=== PATIENT | female | born 1980 | race Two or more races ===

== ENCOUNTER 2023-10-31 00:12 | Emergency (ER) | payer MEDICAID, SELFPAY ==
[2023-10-31] VITALS (7 sets, daily range): BP systolic 147–178; BP diastolic 91–109; PULSE 68–84; RESP 16–20; TEMP 36.2–36.8; O2SAT 97–100; BMI 31.9
--- NOTE | 2023-10-31 00:57 | PC.NURSE ---
Pt presents for reports of high blood pressure at 2 different doctors appointments. Pt BP at this time 164/109 and HR 75. Pt reports a SLATER 12/08, no hx of elevated BP. Pt also reports she has an IUD that is turned upside down and it will be getting removed and this is causing her alot of stress and anxiety. She is not sure if that is related but also has High BP in her family.
--- NOTE | 2023-10-31 01:15 | ECG_ITS ---
Test Reason : cp Blood Pressure : / mmHG Vent. Rate : 070 BPM Atrial Rate : 070 BPM P-R Int : 142 ms QRS Dur : 078 ms QT Int : 402 ms P-R-T Axes : 004 000 002 degrees QTc Int : 434 ms Normal sinus rhythm Minimal voltage criteria for LVH, may be normal variant ( R in aVL ) Nonspecific T wave abnormality Abnormal ECG No previous ECGs available Referred By: Ny Salter Electronically Signed By:SUSAN DOS SANTOS
--- NOTE | 2023-10-31 01:25 | ED_ITS ---
HPI - General Adult General Chief complaint: Headache Stated complaint: high blood pressure/head hurts Time Seen by Provider: 10/31/23 00:52 History of Present Illness HPI narrative: Patient is a 43-year-old female presented today with having elevated blood pressure. Patient went to her OBGYN was noted to have elevated blood pressure. Presented to the ED. There has no fever no chills no chest pain. Took her blood pressure again it was elevated it was 150 over something. Decided to come to the ED. Patient not on any medications. Does not think she is . No leg swelling. No chest pain. No diaphoresis. No history of diabetes. Has a history of IUD. But she has not having any belly pain not having any complications. Related Data Previous Rx's ?Medication ?Instructions ?Recorded amlodipine 5 mg tablet 5 mg PO DAILY #14 tabs 10/31/23 Allergies Allergy/AdvReac Type Severity Reaction Status Date / Time No Known Allergies Allergy Verified 10/31/23 00:26 Review of Systems 2 Review of Systems: No fever no chills no chest pain no shortness a breath no nausea no vomiting Yes all other systems are reviewed and are negative [facility] Past Medical History Attestation statement: The following information was validated with the patient. Social History Social History Alcohol intake: never Smoked in Last 30 Days: No Use of substances other than those prescribed or required for medical reasons: No Advance Directives: No Advance Directives Information Provided: Yes Do you have a plan to hurt others: No Plan Patient : No Physical Exam ED Vital Signs: Vital Signs - 24 hr 10/31/23 00:22 10/31/23 00:46 10/31/23 01:50 Temperature 97.5 F 97.2 F Pulse Rate 74 75 Respiratory Rate 20 17 Blood Pressure 178/100 H 164/109 H 166/96 H Pulse Oximetry 100 100 Oxygen Delivery Method Room Air Room Air 10/31/23 01:51 10/31/23 02:49 10/31/23 03:05 Temperature 98.2 F 98.1 F Pulse Rate 77 78 84 Respiratory Rate 16 16 17 Blood Pressure 166/96 H 161/99 H 147/91 H Pulse Oximetry 100 99 100 Oxygen Delivery Method Room Air Room Air BMI result Body Mass Index 31.9 Appearance: Alert. Oriented X3. No acute distress. Eyes: Pupils equal, round and reactive to light. ENT: Pharynx normal. Neck: Normal inspection. Neck supple. No lymph nodes noted. No crepitus CVS: Normal heart rate and rhythm. Pulses normal. Normal S1 and S2 Respiratory: No respiratory distress. Breath sounds normal. No Wheezing. No rales Abdomen: Soft and nontender. No rigidity. No distention. good BS x4 Skin: Skin warm and dry. Normal skin color. Normal skin turgor. Extremities: No lower extremity edema. Neurovascular intact to all extremities. No Lacerations. No Rash Neuro: Oriented X 3. No motor deficit. No sensory deficit. Moving all extermities. No slurred speech Medications Administered Discontinued Medications Generic Name Dose Route Start Last Admin Trade Name Freq PRN Reason Stop Dose Admin Amlodipine Besylate 5 mg 10/31/23 01:15 10/31/23 01:50 Amlodipine Besylate 5 Mg Tablet PO 10/31/23 01:16 5 mg ONCE ONE Administration Protocol Medical Decision Making Medical Decision Making [facility] Narrative: Patient's blood pressure is 160/99. Electrolytes are normal. Kidney function is normal. Hemoglobin is normal. My interpretation of patient's EKG showed a sinus rhythm heart rate is 70 VA QRS QTC normal there T-wave inversion over the inferior leads patient in no distress. Monitor in the ED started on amlodipine 5 mg will write a prescription for the same have patient follow-up in 2 days for blood pressure recheck with primary care doctor Patient's blood pressure now 147/91. Will discharge patient home. In stable condition. Differential Diagnosis Differential Diagnoses: The differential diagnosis associated with the presentation includes Hypertension, hypertensive urgency hypertensive emergency Admission/Observation Consideration of admission/observation: Escalation of care including admission/observation considered Lab Data [facility] Lab Attestation statement: I reviewed the patient's lab results. 10/31/23 02:00 10/31/23 02:00 Labs: Lab Results 10/31/23 Range/Units 02:00 WBC 12.0 H (4.8-10.8) X10*3/uL RBC 5.10 (4.20-5.50) X10*6/uL Hgb 14.4 (12.0-16.0) g/dl Hct 41.5 (37.0-47.0) % MCV 81.4 (80.0-98.0) fL MCH 28.2 (27.0-33.0) pg MCHC 34.7 (31.0-35.0) g/dl RDW 13.3 (11.0-16.0) % Plt Count 254 (160-400) X10*3/uL MPV 10.7 (9.4-12.3) fL Immature Gran % (Auto) 0.3 (0.0-0.4) % Neut % (Auto) 63.0 (45-73) % Lymph % (Auto) 25.6 (20-40) % [place] % (Auto) 6.8 (2-11) % Eos % (Auto) 3.7 (0-4) % Baso % (Auto) 0.6 (0-2) % Lymph # (Auto) 3.1 (1.2-4.9) X10*3/uL [place] # (Auto) 0.8 (0.1-1.2) X10*3/uL Eos # (Auto) 0.4 (0.0-0.4) X10*3/uL Baso # (Auto) 0.1 (0.0-0.2) X10*3/uL Abs Immat Gran (auto) 0.03 (0.00-0.03) X10*3/uL Absolute Neuts (auto) 7.6 (2.0-8.3) x10*3/uL Absolute Nucleated RBC 0.000 (0.0-0.012) X10*3/uL Nucleated RBC % (auto) 0.0 (0.0-0.2) /100WBC Sodium 140 (135-145) mmol/L Potassium 4.1 (3.3-5.1) mmol/L Chloride 108 (96-108) mmol/L Carbon Dioxide 24 (22-29) mmol/L Anion Gap 12 (12-20) BUN 10 (9-16) mg/dL Creatinine 0.78 (0.5-1.4) mg/dL Estim Creat Clear Calc 96.0 Estimated GFR > 60 Random Glucose 106 (60-115) mg/dL Calcium 9.4 (8.4-10.2) mg/dL Independent Interpretation I performed an independent interpretation of an: EKG (Sinus heart rate is 70 VA QRS QTC normal no acute ST segment elevation T-wave inversion in the inferior leads) Prescription Management I considered prescription management with: Pain Medication No pain no pain control needed Discharge Plan Discharge Clinical Impression: Hypertension Patient Disposition: Home, Self-Care Instructions: Hypertension (ED) Prescriptions: New amlodipine 5 mg tablet 5 mg PO DAILY Qty: 14 0RF Referrals: [facility] [Primary Care Provider] - 11/02/23 Print Language: [place] Citizen
--- OUTSIDE RECORDS SUMMARY | 2023-10-31 01:38 | XMS_ITS | Patient Health Record ---
Author Organization [facility] Address [address] [place] [phone] Care Team Providers Care Die Equipment Operator Name Role Phone ELENITA ARENAS Unavailable [phone] Allergies No Known Allergies Results Component Value Reference Range Notes APTIMA COMBO 2 CT/NG, Urine Reviewed date:10/21/2023 01:57:41 PM Interpretation:Negative Performing Lab:[facility], [address] [facility], [place], [address] Jersey Oneal DO Notes/Report: GONORRHEA, AMPLIFIED NEGATIVE NEGATIVE CHLAMYDIA, AMPLIFIED NEGATIVE NEGATIVE DNA Test Results SEX: F : 1980 AGE: 43 [id number] CLINIC ID: [id number] SS: PHYSICIAN: ELENITA ARENAS MOBILE HOMES REPAIRER COLLECTED BY: [id number] Specimen Source: Urine Specimen Type: Urine, Marquez PCR Medium Neisseria gonorrhoeae: NEGATIVE Normal Value: Negative Chlamydia trachomatis: NEGATIVE Normal Value: Negative Reason For Referral No Information Social History Sex Assigned At : Social History Observation Description Sex Assigned At Female Vital Signs Blood pressure diastolic 84 mm Hg 10/28/2023 Height 5'3 in 10/28/2023 Blood pressure systolic 150 mm Hg 10/28/2023 Weight 187 lbs 10/28/2023 BMI 33.12 kg/m2 10/28/2023 Encounters Encounter Location Date Provider Diagnosis [address] [id number] 10/14/2023 ELENITA ARENAS Encounter for screen ing for infections with a predominantly sexual mode of transmission Z11.3 and IUD Check/Follow-up Z30.[address] [id number] 10/28/2023 ELENITA ARENAS Encounter for gynecological examination (general) (routine) without abnormal findings Z01.419 ; Encounter for screening for human papillomavirus (HPV) Z11.51 and Routine Pap Screening Z12.[address] [id number] 10/23/2023 ELENITA ARENAS Assessments Encounter Date Diagnosis (ICD Code) Assessment Notes Treat ment Notes Treatment Clinical Notes 10/14/2023 Encounter for screening for infections with a predominantly sexual mode of transmission (ICD-10 - Z11.3) 10/14/2023 IUD Check/Follow-up (ICD-10 - Z30.431) Client is referred to [facility] for pelvic US to check for IUD and also since she has some pelvic pain. 10/28/2023 Encounter for gynecological examination (general) (routine) without abnormal findings (ICD-10 - Z01.419) 10/28/2023 Encounter for screening for human papillomavirus (HPV) (ICD-10 - Z11.51) 10/28/2023 Routine Pap Screenin g (ICD-10 - Z12.4) 10/14/2023 Other 10/28/2023 Other She is referred to [facility] for [facility]UD removal. Mammogram referral done. Encouraged to seek care for BP, list of PCP providers given Plan Of Treatment Pending Test Test Name Order Date THINPREP PAP TEST, Cervix 10/28/2023 HPV HIGH RISK, Cervix 10/28/2023 Insurance Providers Payer Name Payer Address Payer Phone Subscriber Number Group Number Insured Name Patient Relationship to Insured Coverage Start Date Coverage End Date [place] ATT [place] [address] [place] [address] [id number] Yunior Jones Self - patient is the insured Medical (General) History Medical History History ICD Code asthma chronic sinus infection Hospitalization History Reason Date(Month/Year) childbirth
[2023-10-31] MEDS: amLODIPine Besylate 5 MG TABLET PO (01:50)
[2023-10-31 02:04] LABS: MANUAL DIFF FLAG NO
[2023-10-31 02:07] LABS: Basophils Absolute Auto 0.1 X10*3/uL (0.0-0.2); Basophils Percent Auto 0.6 % (0-2); Eosinophils Absolute Auto 0.4 X10*3/uL (0.0-0.4); Eosinophils Percent Auto 3.7 % (0-4); Hematocrit 41.5 % (37.0-47.0); Hemoglobin 14.4 g/dl (12.0-16.0); Imm Gran Abs Auto 0.03 X10*3/uL (0.00-0.03); Imm Gran Pct Auto 0.3 % (0.0-0.4); Lymphocytes Absolute Auto 3.1 X10*3/uL (1.2-4.9); Lymphocytes Percent Auto 25.6 % (20-40); Mean Corpuscular HGB Conc 34.7 g/dl (31.0-35.0); Mean Corpuscular Hemoglobin 28.2 pg (27.0-33.0); Mean Corpuscular Volume 81.4 fL (80.0-98.0); Mean Platelet Volume 10.7 fL (9.4-12.3); Monocytes Absolute Auto 0.8 X10*3/uL (0.1-1.2); Monocytes Percent Auto 6.8 % (2-11); Neutrophils Absolute Auto 7.6 x10*3/uL (2.0-8.3); Platelet Count 254 X10*3/uL (160-400); Red Cell Distribution Width 13.3 % (11.0-16.0)
[2023-10-31 02:21] LABS: Anion Gap 12 (12-20); Blood Urea Nitrogen 10 mg/dL (9-16); Calcium 9.4 mg/dL (8.4-10.2); Carbon Dioxide 24 mmol/L (22-29); Chloride 108 mmol/L (96-108); Estimated Glomerular Filt Rate > 60; Glucose Random 106 mg/dL (60-115); Potassium 4.1 mmol/L (3.3-5.1); Sodium 140 mmol/L (135-145)
--- NOTE | 2023-10-31 02:50 | PC.NURSE ---
MD aware of BP, recheck in 20 minutes.
== END 2023-10-31 03:35 | disposition home or self-care (01) ==
PROVIDERS: Emergency Provider Emergency Medicine Emergency Medical Services
DX: I10 Essential (primary) hypertension (principal)
CPT/HCPCS: 36415; 80048; 85025; 93005; 99283; 99285

== ENCOUNTER → 2023-10-31 01:15 | Outpatient (BNV) | payer MEDICAID, SELFPAY | PROVIDERS: Emergency Provider Emergency Medicine Emergency Medical Services; Visit Provider Internal Medicine | DX: R94.31 Abnormal electrocardiogram [ECG] [EKG] (principal) | CPT/HCPCS: 93010 ==

== ENCOUNTER 2023-11-04 10:07 | Outpatient (REF) | payer MEDICAID, SELFPAY | END 2023-11-04 10:08 | disposition home or self-care (01) | LOC: HO.HHCL 10:07 | PROVIDERS: Visit Provider Nurse Practitioner | DX: Z53.8 Procedure and treatment not carried out for other reasons (principal) | CPT/HCPCS: 36415 ==

== ENCOUNTER 2023-12-21 11:40 | Outpatient (REF) | payer MEDICAID, SELFPAY ==
[2023-12-21 13:37] LABS: Estimated Average Glucose 103 mg/dL; Hemoglobin A1c % 5.2 % (<6.0)
[2023-12-21 13:46] LABS: Alanine Aminotransferase 17 U/L (0-31); Albumin Level 4.3 g/dL (3.5-5.0); Alkaline Phosphatase 63 U/L (39-117); Anion Gap 12 (12-20); Aspartate Amino Transferase 15 U/L (5-31); Bilirubin Total 0.9 mg/dL (0.0-1.0); Blood Urea Nitrogen 12 mg/dL (9-16); Calcium 9.5 mg/dL (8.4-10.2); Carbon Dioxide 25 mmol/L (22-29); Chloride 104 mmol/L (96-108); Cholesterol 163 mg/dL (<200); Estimated Glomerular Filt Rate > 60; Glucose Random 93 mg/dL (60-115); HDL Cholesterol 50 mg/dL (>40); LDL Cholesterol Calculated 94 mg/dL (<100); Potassium 3.3 mmol/L (3.3-5.1); Sodium 138 mmol/L (135-145); Total Protein 7.6 g/dL (6.5-8.0); Triglycerides 97 mg/dL (<150)
== END 2023-12-21 11:41 | disposition home or self-care (01) ==
LOC: HO.HHCL 11:40
PROVIDERS: Referring Provider Nurse Practitioner; Visit Provider Nurse Practitioner Family
DX: I10 Essential (primary) hypertension (principal)
CPT/HCPCS: 36415; 80053; 80061; 83036

== ENCOUNTER 2024-01-18 18:25 | Emergency (ER) | payer MEDICAID, SELFPAY ==
--- NOTE | 2024-01-18 19:19 | ED_ITS ---
HPI - Extremity Injury (Lower) General Chief Complaint: Back Pain/Injury Stated Complaint: RT hip pain Time Seen by Provider: 01/18/24 19:22 Source: patient Mode of arrival: ambulatory Limitations: no limitations History of Present Illness ED Provider: Rupa Layne PA-C HPI Narrative: 43 yo Vietnamese speaking female presents to the ER for evaluation of lower back pain that started today after she bent down to pick up man her 5 yo child. She reports a pulling and spasming sensation across her entire lower back when it happened and it is worse on the right side. It is worse with movement and trying to stand up. She took tylenol with no relief. No urinary symptoms, weakness or numbness in the leg. Hx prior back pain after she had an epidural for . MD complaint: other (back injury) Onset (ago): hour(s) Place: home Severity: moderate Severity scale (1-10): 6 Relieving factors: nothing Exacerbating factors: nothing Associated symptoms: ambulatory Other symptoms: none Related Data Previous Rx's ?Medication ?Instructions ?Recorded amlodipine 5 mg tablet 5 mg PO DAILY #14 tabs 10/31/23 cyclobenzaprine 10 mg tablet 10 mg PO TID PRN muscle spasm #14 01/18/24 tabs ibuprofen 600 mg tablet 600 mg PO Q8H PRN pain #14 tabs 01/18/24 lidocaine 5 % topical patch 1 patch topical DAILY #15 ea 01/18/24 Allergies Allergy/AdvReac Type Severity Reaction Status Date / Time No Known Allergies Allergy Verified 01/18/24 19:24 Review of Systems Review of Systems: Yes all other systems are reviewed and are negative [facility] Social History Social History Alcohol intake: never Advance Directives: No Advance Directives Information Provided: Yes Physical Exam Vital Signs: Vital Signs: Last Vital Signs Temp 98.3 F 01/18/24 19:22 Pulse 86 01/18/24 19:22 Resp 18 01/18/24 19:22 BP 138/57 L 01/18/24 19:22 Pulse Ox 98 01/18/24 19:22 O2 Del Method Room Air 01/18/24 19:22 BMI result Body Mass Index 34.4 Appearance: Alert. Oriented X3. No acute distress. HEENT: normal inspection CVS: Normal heart rate and rhythm. Pulses normal. Respiratory: No respiratory distress. Skin: Skin warm and dry. Normal skin color. Normal skin turgor. No rashes. Back: normal inspection, no ecchymosis. diffuse soft tissue tenderness across her middle lumbar area with palpable spasm. no midline tenderness of the lumbar spine or thoracic spine. Extremities: normal inspection x4, no joint swelling Neuro: Oriented X 3. No motor deficit. No sensory deficit. slow but steady gait Course Course Course Narrative: This is a Rapid Medical Examination (RME) performed by Rupa Layne PA-C in triage. Full HPI, ROS, assessment and treatment plan per primary provider in the Main ED. 43 yo male presents to the ER for evaluation of right hip pain Plan: Medical Decision Making Medical Decision Making MDM Narrative: 43 yo Vietnamese speaking female presenting with LBP after lifting up 5yo child today. No red flag symptoms of low back pain. ambulating slowly in triage. no need for imaging today. no falls or trauma exam and clinical presentation are c/w muscle strain and spasm. will d/c home with flexeril, motrin, lidoderm Differential Diagnosis Differential Diagnoses: The differential diagnosis associated with the presentation includes Inflammatory disorders, malignancy, trauma, osteoporosis, nerve root compression, radiculopathy, plexopathy, degenerative disc disease, disc herniation, spinal stenosis, sacroiliac joint dysfunction, facet joint injury, and less likely infection?like abscess or diskitis External Record Review External record reviewed: Prior outpatient labs Tests considered The following testing was considered but not selected: UA and lumbar xray considered Prescription Management I considered prescription management with: Pain Medication Critical Care Time Critical Care Time Critical Care Time: No Discharge Plan Discharge Clinical Impression: Strain of lumbar region Qualifiers: Encounter type: initial encounter Qualified Code(s): S39.012A - Strain of muscle, fascia and tendon of lower back, initial encounter Patient Disposition: Home, Self-Care Instructions: Low Back Strain (ED), Lower Back Exercises (ED) Additional Instructions: Your pain is most likely due to muscle strain and spasm. No bending, lifting or twisting. Use ice several times per day for 20 minutes at a time for the next 48 hours and then change to heat. Take medications as prescribed to help with pain and discomfort. Follow up with your Primary Care Doctor this week. If your pain worsens, if you develop new numbness, tingling, weakness, loss of function or incontinence call 911 or come back to the ER right away for evaluation. Prescriptions: New cyclobenzaprine 10 mg tablet 10 mg PO TID PRN (Reason: muscle spasm) Qty: 14 0RF ibuprofen 600 mg tablet 600 mg PO Q8H PRN (Reason: pain) Qty: 14 0RF lidocaine 5 % adhesive patch,medicated 1 patch topical DAILY Qty: 15 0RF Rx Instructions: leave on most painful area for up to 12 hrs No Action amlodipine 5 mg tablet 5 mg PO DAILY Qty: 14 0RF Print Language: Vietnamese
[2024-01-18 19:22] VITALS: BP 138/57; PULSE 86; RESP 18; TEMP 36.8; O2SAT 98; BMI 34.4
[2024-01-18 19:57] VITALS: BP 138/57; PULSE 86; RESP 18; TEMP 36.8; O2SAT 98
== END 2024-01-18 19:58 | disposition home or self-care (01) ==
PROVIDERS: Emergency Provider Internal Medicine; PCP Nurse Practitioner Family
DX: S39.012A Strain of muscle, fascia and tendon of lower back, initial encounter (principal); X50.9XXA Other and unspecified overexertion or strenuous movements or postures, initial encounter; Y93.89 Activity, other specified; Y92.9 Unspecified place or not applicable; Y99.9 Unspecified external cause status
CPT/HCPCS: 99282; 99283

== ENCOUNTER 2024-06-24 18:11 | Emergency (ER) | payer MEDICAID, SELFPAY ==
--- NOTE | ~2024-06-24 | CT_ITS ---
CLINICAL HISTORY: bilateral flank pain, hematuria CT abdomen and pelvis without contrast Comparison: None Findings: Small hiatal hernia is present. The gallbladder and solid organs are within normal limits. No renal stones. No bowel obstruction, pneumoperitoneum, or pneumatosis. An IUD in the uterus is oriented horizontally within the fundal endometrium. IUD oriented horizontally within the fundal endometrium, possibly malpositioned. Please correlate clinically. The bones are intact. IMPRESSION: Otherwise unremarkable CT abdomen and pelvis as above. This document has been electronically signed by: Everett Wheeler MD, PHD on 06/25/2024 03:00:09
--- NOTE | 2024-06-24 19:13 | ED_ITS ---
HPI - General Adult General Chief complaint: Abdominal Pain Stated complaint: abd pain Time Seen by Provider: 06/25/24 01:09 Source: patient Mode of arrival: ambulatory Limitations: no limitations History of Present Illness ED Provider: Dr. Arlene Loyd HPI narrative: Patient comes to the emergency room complaining of intermittent suprapubic and sling pain for last 15 hours. Patient states that for the last 2 hours she has not had any abdominal pain or flank pain. Patient denies hematuria or dysuria. Patient is nausea vomiting or diarrhea. Related Data Previous Rx's ?Medication ?Instructions ?Recorded amlodipine 5 mg tablet 5 mg PO DAILY #14 tabs 10/31/23 cyclobenzaprine 10 mg tablet 10 mg PO TID PRN muscle spasm #14 01/18/24 tabs ibuprofen 600 mg tablet 600 mg PO Q8H PRN pain #14 tabs 01/18/24 lidocaine 5 % topical patch 1 patch topical DAILY #15 ea 01/18/24 cefuroxime axetil 250 mg tablet 250 mg PO BID #14 tabs 06/25/24 Allergies Allergy/AdvReac Type Severity Reaction Status Date / Time No Known Allergies Allergy Verified 06/24/24 19:19 Review of Systems 2 Review of Systems: Constitutional : No Weight loss, No Fever, No Chills, No Night Sweats, No Fatigue, No Malaise ENT/Mouth : No Hearing loss, No Ear Pain, No Nasal Congestion, No Sinus Pain, No Hoarseness, No sore throat, No Rhinorrhea, No Swallowing Difficulty Eyes: No Eye Pain, No Swelling, No Redness, No Foreign Body, No Discharge, No Vision Changes Cardiovascular : No Chest Pain, No SOB, No Dyspnea on Exertion, No Orthopnea, No Edema, No Palpitations Respiratory : No Cough, No Sputum, No Wheezing, No Smoke Exposure, No Dyspnea Gastrointestinal : No Nausea, No Vomiting, No Diarrhea, No Constipation, complaining of suprapubic abdominal pain, bilateral flank pain Genitourinary : no irregular bleeding, No Dysuria, No Urinary Frequency, No Hematuria, No Urinary Incontinence, No Urgency, complaining of mild bilateral Flank Pain, No Urinary Flow Changes, No Hesitancy Musculoskeletal : No joint pain, No Myalgias, No Joint Swelling Skin : No Skin Lesions, No rash Neuro : No Weakness, No Numbness, No Paresthesias, No Loss of Consciousness, No Dizziness, No Headache Psych : No Anxiety/Panic, No Depression, No SI/HI/AH/VH, No Social Issues, Heme/Lymph: No Bruising, No Bleeding,No Lymphadenopathy Endocrine : No Polyuria, No Polydipsia, No Temperature Intolerance [facility] Social History Social History Alcohol intake: never Smoked in Last 30 Days: No Use of substances other than those prescribed or required for medical reasons: No Advance Directives: No Advance Directives Information Provided: Yes Do you have a plan to hurt others: No Plan Physical Exam ED Vital Signs: Vital Signs - 24 hr 06/24/24 19:16 06/25/24 00:27 Temperature 97 F 98.4 F Pulse Rate 84 87 Respiratory Rate 16 18 Blood Pressure 118/80 113/80 Pulse Oximetry 97 96 Oxygen Delivery Method Room Air Room Air BMI result Body Mass Index 0.3 Const Other: Appearance: Alert. Oriented X3. No acute distress. Eyes: Pupils equal, round and reactive to light. ENT: Pharynx normal. Neck: Normal inspection. Neck supple. No lymph nodes noted. No crepitus CVS: Normal heart rate and rhythm. Pulses normal. Normal S1 and S2 Respiratory: No respiratory distress. Breath sounds normal. No Wheezing. No rales Abdomen: Soft , mild tenderness to palpation in suprapubic area, no significant CVA tenderness,. No rigidity. No distention. Skin: Skin warm and dry. Normal skin color. Normal skin turgor. Extremities: No lower extremity edema. No Lacerations. No Rash Neuro: Oriented X 3. No motor deficit. No sensory deficit. Moving all extremities. No slurred speech. CN 2 through 12 grossly intact Psych: calm, cooperative, normal affect Course Course Course Narrative: This is a rapid medical exam performed by Divina Austin NP: Additional HPI, ROS, PE not included below will be deferred to primary provider. Patient is a 43-year-old female presenting with complaint of generalized abdominal pain since this morning. Denies nausea, vomiting, diarrhea. Rates pain at 6-7/10. Denies urinary symptoms. Plan: labs, UA Medical Decision Making Medical Decision Making [facility] Narrative: My interpretation of labs: Normal hematology and chemistry, normal LFTs and lipase. Urinalysis positive for blood in the urine and bacteria. Patient denies dysuria. It is possible patient may be passing a kidney stone CT scan of the abdomen/pelvis show any acute abnormality, IUD in place Patient was given the 1st dose of cefuroxime in the ED Differential Diagnosis Differential Diagnoses: The differential diagnosis associated with the presentation includes (Ureterolithiasis, pyelonephritis, UTI) Admission/Observation Consideration of admission/observation: Escalation of care including admission/observation considered (Given patient's symptoms, observation was considered) Lab Data MDM Lab Attestation statement: I reviewed the patient's lab results. 06/24/24 19:42 06/24/24 19:42 Labs: Lab Results 06/24/24 06/25/24 Range/Units 19:42 19:42 WBC 11.1 H (4.8-10.8) X10*3/uL RBC 5.34 (4.20-5.50) X10*6/uL Hgb 14.4 (12.0-16.0) g/dl Hct 43.0 (37.0-47.0) % MCV 80.5 (80.0-98.0) fL MCH 27.0 (27.0-33.0) pg MCHC 33.5 (31.0-35.0) g/dl RDW 13.2 (11.0-16.0) % Plt Count 277 (160-400) X10*3/uL MPV 10.7 (9.4-12.3) fL Immature Gran % (Auto) 0.5 H (0.0-0.4) % Neut % (Auto) 78.8 H (45-73) % Lymph % (Auto) 15.3 L (20-40) % Citrus % (Auto) 3.6 (2-11) % Eos % (Auto) 1.3 (0-4) % Baso % (Auto) 0.5 (0-2) % Lymph # (Auto) 1.7 (1.2-4.9) X10*3/uL Citrus # (Auto) 0.4 (0.1-1.2) X10*3/uL Eos # (Auto) 0.1 (0.0-0.4) X10*3/uL Baso # (Auto) 0.1 (0.0-0.2) X10*3/uL Abs Immat Gran (auto) 0.05 H (0.00-0.03) X10*3/uL Absolute Neuts (auto) 8.8 H (2.0-8.3) x10*3/uL Absolute Nucleated RBC 0.000 (0.0-0.012) X10*3/uL Nucleated RBC % (auto) 0.0 (0.0-0.2) /100WBC PT 11.9 (10.9-12.4) SEC INR 1.0 (0.9-1.1) Sodium 140 (135-145) mmol/L Potassium 4.7 D (3.3-5.1) mmol/L Chloride 109 H (96-108) mmol/L Carbon Dioxide 24 (22-29) mmol/L Anion Gap 12 (12-20) BUN 9 (9-16) mg/dL Creatinine 0.69 (0.5-1.4) mg/dL Estim Creat Clear Calc 150.7 Estimated GFR > 60 Random Glucose 97 (60-115) mg/dL Calcium 8.7 D (8.4-10.2) mg/dL Total Bilirubin 0.7 (0.0-1.0) mg/dL AST 15 (5-31) U/L ALT 13 (0-31) U/L Alkaline Phosphatase 58 (39-117) U/L Total Protein 7.7 (6.5-8.0) g/dL Albumin 4.2 (3.5-5.0) g/dL Lipase 26 (8-78) U/L Urine Color Yellow Urine Appearance Clear Urine pH 6.0 (5.0-9.0) Ur Specific [place] 1.010 (1.005-1.025) Urine Protein Negative (Neg-Trace) mg/dL Urine Glucose (UA) Negative (Negative) mg/dL Urine Ketones Negative (Negative) mg/dL Urine Blood Large (3+) H (Negative) Urine Nitrite Negative (Negative) Ur Leukocyte Esterase Moderate (2+) H (Negative) Urine RBC 0-2 (0-2) /HPF Urine WBC 21-50 H (0-5) /HPF Ur Squamous Epith Cells 3-5 (0-2) /HPF Urine Bacteria 1+ (None Seen) Hyaline Casts 0-2 (0-2) /LPF Urine Test NEGATIVE (NEGATIVE) Independent Interpretation I performed an independent interpretation of an: CT Scan Radiology Impression Discussion of test interpretation with radiology: I have reviewed the radiologist's reading. Radiologist Impression: CT abdomen and pelvis without contrast Comparison: None Findings: Small hiatal hernia is present. The gallbladder and solid organs are within normal limits. No renal stones. No bowel obstruction, pneumoperitoneum, or pneumatosis. An IUD in the uterus is oriented horizontally within the fundal endometrium. IUD oriented horizontally within the fundal endometrium, possibly malpositioned. Please correlate clinically. The bones are intact. IMPRESSION: Otherwise unremarkable CT abdomen and pelvis as above. Critical Care Time Critical Care Time Critical Care Time: Yes Total Critical Care Time: 35 Attestation: I have personally provided critical care time. Time includes review of lab data, radiology results, discussion with consultants, and monitoring for potential decompensation. Intervention performed as documented. Discharge Plan Discharge Clinical Impression: UTI (urinary tract infection) Patient Disposition: Home, Self-Care Instructions: Urinary Tract Infection in Women (ED) Additional Instructions: [facility] [address] [place] [address]. Please follow-up with your primary care physician tomorrow. If you have any worsening or new symptoms, please return to the emergency room or call 911 Prescriptions: New cefuroxime axetil 250 mg tablet 250 mg PO BID Qty: 14 0RF No Action amlodipine 5 mg tablet 5 mg PO DAILY Qty: 14 0RF cyclobenzaprine 10 mg tablet 10 mg PO TID PRN (Reason: muscle spasm) Qty: 14 0RF ibuprofen 600 mg tablet 600 mg PO Q8H PRN (Reason: pain) Qty: 14 0RF lidocaine 5 % adhesive patch,medicated 1 patch topical DAILY Qty: 15 0RF Rx Instructions: leave on most painful area for up to 12 hrs Print Language: Icelandic
[2024-06-24 19:16] VITALS: BP 118/80; PULSE 84; RESP 16; TEMP 36.1; O2SAT 97
--- OUTSIDE RECORDS SUMMARY | 2024-06-24 19:39 | XMS_ITS | Encounter Summary ---
Author Organization [employer] Address [address] [place] [address] [address] [place] [address] Care Team Providers Care Child Care Nurse Name Role Phone Jennifer Armenta NP Primary Care Provider [phone] Reason for Visit * Reason Onset Date Comments No Show 06/17/2024 Encounter Details Date Type Department Care Team ([facility] Contact Info) Description 06/17/2024 Telephone [facility] MEDICINE [address] [place], [place] [phone] Jennifer Armenta NP [address] [place] [address] No Show Social History Tobacco Use Types Packs/Day Years Used Date Smoking Tobacco: Never Passive Smoke Exposure: Never Smokeless Tobacco: Never Alcohol Use Standard Drinks/Week Comments Never 0 (1 standard drink = 0.6 oz pur e alcohol) Alcohol Answer Date Recorded Frequency of Alcohol Consumption Not on file 11/17/2023 Average Number of Drinks Not on file 024 Frequency of Binge Drinking Not on file 10/30 Score 0 11/17/2023 Depression Answer Date Recorded Patient Health Questionnaire-9 Score 0 11/17/2023 Patient Health Questionnaire-9 Score 0 11/17/2023 Last PHQ-9: Questionnaire Data Not on file 0 11/17/2023 Housing Stability Answer Date Recorded What is your housing situation today? I have ishaan carrasco 11/17/[address] you li ve. Do you have problems with any of the following? None of the above 11/17/2023 Food Insecurity Answer Date Recorded Within the past 12 months, y ou worried that your food would run out before you got money to buy more: Never True 11/17/2023 Within the past 12 months,th e food you bought just didn't last and you didn't have enough money to get more: Never True Transportation Answer Date Recorded In the past 12 months, has l ack of transportation kept you from medical appts, meetings, work or from getting things needed for daily living? No 11/10/2023 Utilities Answer Date Recorded In the past 12 months, has t he electric, gas, oil or water company threatened to shut off services in your home? No 11/10/2023 Depression Answer Date Recorded Patient Health Questionnaire-2 Score 0 11/17/2023 Internet Access Answer Date Recorded Internet Access Q1 No 01/29/2024 Internet Access Q2 I do not want or need it 01/01 Comments Unknown Sex and Gender Information Value Date Recorded Sex Assigned at Female 03/31/2022 10:33 AM EDT Legal Sex Female 10:33 AM EDT Gender Identity Female 11/02/2023 11:08 AM EDT Sexual Orientation Straight 11/02/2023 11 :08 AM EDT documented as of this encounter Miscellaneous Notes * Telephone Encounter - Love Pastrana - 06/17/2024 9:47 AM EST Patient no show to follow up appointment on 06/17/24. documented in this encounter Plan of Treatment Not on file documented as of this encounter Visit Diagnoses Not on filedocumented in this encounter Additional Health Concerns Assessment Noted Time PHQ-9 Depression Total Score: 0 11/17/19 24 2:14 PM EDT documented as of this encounter Care Teams Child Care Nurse Relationship Specialty Start Date End Date Jennifer Armenta NP [address] [place] [phone] PCP - General Family Medicine 11/17/23 documented as of this encounter
--- OUTSIDE RECORDS SUMMARY | 2024-06-24 19:39 | XMS_ITS ---
Author Organization [facility] Address [address] [place] [id number] Care Team Providers Care Teacher Counselor Name Role Phone ELENITA ARENAS Unavailable [phone] Allergies No Known Allergies Results Component Value Reference Range Notes THINPREP PAP TEST, Cervix Reviewed date:11/17/2023 10:06:00 AM Interpretation:Normal Performing Lab:[facility], [address], [place], [address] Jersey Oneal DO Notes/Report: THINPREP PAP TEST NEGATIVE NEGATIVE -- THIN PREP PAP TEST -- SEX: F : 1980 AGE: 43 [id number] CLINIC ID: [id number] SS: PHYSICIAN: ELENITA ARENAS SUPERVISOR LOCOMOTIVE COLLECTED BY: ____ Negative for Intraepithelial Lesion or Malignancy ____ Additional Findings: Endocervical Material Present Specimen Adequacy: Satisfactory for Evaluation Clinical Note: HPV [id number] Encounter for gynecological examination (general) (routine) without abnormal vufkpfrdS96.51 Encounter for screening for human papillomavirus (HPV), LMP 10/28/23 Specimen Source: Cervix Visit Type: Routine Performed by: SCOT Rock (ASCP) Reviewed by: SCOT Rehman (ASCP) (Electronic Signature 11/10/2023 07:54) HPV HIGH RISK, Cervix Reviewed date:11/17/2023 09:50:02 AM Interpretation:Negative Performing Lab:[facility], [facility] [address] [facility], [place], [address] Jersey Oneal DO Notes/Report: HPV HIGH RISK NEGATIVE NEGATIVE HPV High Risk DNA Probe Assay SEX: F : 1980 AGE: 43 [id number] CLINIC ID: [id number] SS: PHYSICIAN: ELENITA ARENAS SUPERVISOR LOCOMOTIVE COLLECTED BY: ____ Specimen Source: Cervix Specimen Type: ThinPrep Pap Correlating Pap: [id number] Additional High Risk Subtypes* NEGATIVE * Includes 31,33,35,39,45,51,52,56,58,59,66, 68 Subtype 16 NEGATIVE Subtype 18 NEGATIVE REASON FOR VISIT Annual Exam Social History Sex Assigned At : Social History Observation Description Sex Assigned At Female Vital Signs Blood pressure systolic 150 mm Hg 10/28/19 24 Blood pressure diastolic 84 mm Hg 024 Height 5'3 in 10/28/2023 Weight 187 lbs 10/28/2023 BMI 33.12 kg/m2 10/28/2023 Encounters Encounter Location Date Provider Diagnosis [address] [phone] 10/28/2023 ELENITA ARENAS Encounter for gynecological examination (general) (routine) without abnormal findings Z01.419 ; Encounter for screening for human papillomavirus (HPV) Z11.51 and Routine Pap Screening Z12.4 Assessments Encounter Date Diagnosis (ICD Code) Assessment Notes Treatment Notes Treatment Clinical Notes Section Notes 10/28/2023 Encounter for gynecological examination (general) (routine) without abnormal findings (ICD-10 - Z01.419) 10/28/2023 Encounter for screening for human papillomavirus (HPV) (ICD-10 - Z11.51) 10/28/2023 Routine Pap Screening (ICD-10 - Z12.4) 10/28/2023 Other She is referred to [facility] TECHN[facility] for IUD removal. Mammogram referral done. Encouraged to seek care for BP, list of PCP providers given Plan Of Treatment Treatment Notes Assessment Notes Other She is referred to [facility] TECHNICIAN for IUD removal. Mammogram referral done. Encouraged to seek care for BP, list of PCP providers given Next Appt Details Follow Up: 1 Year, Reason: Progress Notes * Adarsh CASTROOB:0 1980 (43 yo F)Acc No.[id number]:10/28/2023 Progress Notes Patient:?Lucrecia CASTRO Provider:?Elenita Arenas NP :1980???Age:43 Y???Sex:Female D ate:10/28/2023 Address:[address] [place] [address], [place], [id number] Subjective: * Chief Complaints: * ???Annual Exam * HPI: ???Visit Narrative:? Here for annual and pap.? Discussed US results which show IUD is upside down. ?Reason for the visit:?annual.?Current form of control:?iud.?Presenting Symptoms:?no sxs/concerns?.?LMP:?10/27.?Last date of UPI:?10/13.? * ROS:?Vaginal/Breast/ Control FU:?Denies?Missed period(s).?Denies?Painful intercourse.?Denies?Painful menses.?Denies?Vaginal bleeding between periods.?Denies?Vaginal discharge/itching.? * Medical History:? * [employer] Hand History:?Last mammogram date:?hasnt had a mammogram yet.?Last menstrual period:?10/13.?Last pap smear date:?2019-NIL per clt.?Menarche:?Age of menarche?11.? * OB History:?Total pregnancie s:?5.?Total living children:?5.? * Surgical History:?Denies Pas t Surgical History * Hospitalization/Major Diagno stic Procedure:?childbirth * Family History:?Father: diag nosed with HBP.?Mother: diagnosed with HBP.? * Social History:?Food Access:?Food Access?The Client's current access to food is?Secure [employer] Access.?Housing:?Housing?The client's current living situation is:?unstable housing clt wants referrals.?Reproductive Life Plan:?Reproductive Life Plan?Do you want to have children??Yes, I want to have children.?Sexual History:?Sexual History?Sexual History Reviewed:?Partners, Practices, Protection/Past STIs, Prevention of , ___,?Currently sexually active??Yes,?Sexually active with: Men,?Number of male partners?1,?Your sexual activities include:?vaginal intercourse,?Date of last unprotected intercourse:?10/28/2023,?Number of partners in past 3 months:?1,?Number of partners in past year:?1.?HIV Risk Assessment:?Additional Questions?Is an HIV Risk Assessment being conducted??Yes,?Have you been tested for HIV before??Yes.?Relationships:?Relationships?Has the client experienced any of the following:?Client has never experienced harmful relationships.?Human Trafficking:?Human Trafficking?Experienced:?No.?Tobacco Use:?Tobacco Use?Do you/have you used tobacco??No,?Tobacco Smoking Status?Never smoker .?Drugs/Alcohol:?Drug/Alcohol Use?Do you or have you used drugs??No,?Do you or have you used alcohol??No.?Counseling Provided:?Counseling Provided?Please indicate the length of time, in minutes, that counseling was provided.?7,?Counseling Was Provided By:?aidee.? * Medications:?None * Allergies:?N.K.D.A.no[Allerg ies Verified] Objective: * Vitals:?BP:150/84mm Hg, Ht: 5'3 , Wt:187lbs, BMI:33.12Index, Ht-cm: 160.02, Wt- k.82. * Examination: ???Genitourinary: ?EXTERNAL GENITALIA:?.?VAGINA:?.?BLADDER:?.?URETHRA:?.?CERVIX:?.?UTERUS:?.?ADNEXA:?.?ANUS AND PERINEUM:?.?General Exam: ?CONSTITUTIONAL:?.?NECK/THYROID:?.?RESPIRATORY:?.?CARDIOVASCULAR:?.?BREAST, Right:?.?BREAST, Left:?.?GASTROINTESTINAL:?.?SKIN:?.?NEURO/PSYCH:?.? Assessment: * Assessment: 1.?Encounter for gynecologic al examination (general) (routine) without abnormal findings - Z01.419 (Primary)?2.?Encounter for screening for human papillomavirus (HPV) - Z11.51?3.?Routine Pap Screening - Z12.4? Plan: * Treatment: ? Value Reference Range ?THINPREP PAP TEST NEGATIVE NEGAT SAUMYA - * LONI MEADOWS 11/17/2023 10:05:3 1 AM EDT > your pap is normal and your HPV screening is negative. I recommend routine screening in 5 years. Call with questions or concernsThis lab was reviewed by LONI MEADOWS on 11/17/2023 at 10:06 AM EDT ?LAB: HPV HIGH RISK, Cervix (Collection Date & Time - 10/28/2023 03:23 PM)* ? Value Reference Range ?HPV HIGH RISK NEGATIVE NEGATIVE - * This lab was reviewed by HEMANT RIVAS on 11/17/2023 at 09:50 AM EDT 2.?Encounter for screening for human papillomavirus (HPV)?LAB: HPV HIGH RISK, Cervix (Collection Date & Time - 10/28/2023 03:23 PM)* ? Value Reference Range ?HPV HIGH RISK NEGATIVE NEGATIVE - * This lab was reviewed by HEMANT RIVAS on 11/17/2023 at 09:50 AM EDT 3.?Others? Notes: She is referred to [facility] TECHNICIAN for IUD removal. Mammogram referral done. Encouraged to seek care for BP, list of PCP providers given?? * Procedure Codes:? * Follow Up:?1 Year * Billing Information: * Visit Code:? 10030 Existing Preventative - Age 40-64 (IN USE). * Procedure Codes:? * Sign off status: Completed true * Provider:?Elenita Arenas NP Date:? 024 Generated for Printi ng/Faniting/eTransmitting on:?06/24/2024 07:39 PM EST History and Physical Notes * HPI (History of Present Illness) Category Sub-Category Detail Notes Category Not es Visit Narrative Reason for the visit: annual Current form of control: iud Presenting Symptoms: no sxs/concerns LMP: 10/27 Last date of UPI: 10/13 Examination Category Sub-Category Detail Notes Category Not es General Exam CONSTITUTIONAL: General Appearan ce:: alert, in no acute distress, normal, well nourished NECK/THYROID: Inspection/Palpation:: normal Thyroid:: normal size and shape RESPIRATORY: Auscultation:: clear to ausculta tion bilaterally Respiratory Effort:: normal CARDIOVASCULAR: Auscultation:: regular rate and rhythm GASTROINTESTINAL: Abdomen:: no masses, nontender , nondistended Liver and Spleen:: no hepatomegaly prese nt SKIN: Skin:: normal NEURO/PSYCH: Orientation:: time , place, pers on Mood/Affect:: normal BREAST, Right: Inspection/Palpation :: no discharge, no masses present, no nipple retraction, no skin changes, no skin dimpling, no tenderness, no lymphadenopathy, no axillary mass, no axillary tenderness BREAST, Left: Inspection/Palpation :: no discharge, no masses present, no nipple retraction, no skin changes, no skin dimpling, no tenderness, no lymphadenopathy, no axillary mass, no axillary tenderness Genitourinary EXTERNAL GENITALIA: External Genitalia:: nor mal, no lesions VAGINA: Vagina:: normal appearance, no a bnormal discharge, no lesions BLADDER: Bladder:: no mass, non-tender URETHRA: Urethra:: no erythema or lesions present CERVIX: Cervix:: no lesions, nontender UTERUS: Uterus:: nontender, normal conto ur, normal mobility, normal size ADNEXA: Adnexa:: no masses, no tendernes s ANUS AND PERINEUM: Anus/Perineum:: visually norm al
--- OUTSIDE RECORDS SUMMARY | 2024-06-24 19:39 | XMS_ITS ---
Author Organization [facility] Address [address] [place] [phone] Care Team Providers Care Shipping Lead Name Role Phone ELENITA ARENAS Unavailable [phone] Allergies No Known Allergies Results Component Value Reference Range Notes APTIMA COMBO 2 CT/NG, Urine Reviewed date:10/21/2023 01:57:41 PM Interpretation:Negative Performing Lab:[facility], [facility], [place], [address] Jersey Oneal DO Notes/Report: GONORRHEA, AMPLIFIED NEGATIVE NEGATIVE CHLAMYDIA, AMPLIFIED NEGATIVE NEGATIVE DNA Test Results SEX: F : 1980 AGE: 43 [id number] CLINIC ID: [id number] SS: PHYSICIAN: ELENITA ARENAS STUDENT ADMISSIONS CLERK COLLECTED BY: [id number] Specimen Source: Urine Specimen Type: Urine, Marquez PCR Medium Neisseria gonorrhoeae: NEGATIVE Normal Value: Negative Chlamydia trachomatis: NEGATIVE Normal Value: Negative REASON FOR VISIT IUD follow up Social History Sex Assigned At : Social History Observation Description Sex Assigned At Female Vital Signs Blood pressure systolic 156 mm Hg 10/14/19 24 Blood pressure diastolic 104 mm Hg 024 Height 5'3 in 10/14/2023 Weight 187 lbs 10/14/2023 BMI 33.12 kg/m2 10/14/2023 Encounters Encounter Location Date Provider Diagnosis [place] [address] [place], [place] [id number] 10/14/2023 ELENITA ARENAS Encounter for screen ing for infections with a predominantly sexual mode of transmission Z11.3 and IUD Check/Follow-up Z30.431 Assessments Encounter Date Diagnosis (ICD Code) Assessment Notes Treatment Notes Treatment Clinical Notes Section Notes 10/14/2023 Encounter for screening for infections with a predominantly sexual mode of transmission (ICD-10 - Z11.3) Unable to remove IUD today Spent 22 minutes doing the following: Chart Prep Obtaining/rev iewing history Performing medically necessary exam Counseling/Co ordination of Care Documenting the visit Educating the patient Ordering medication/te st/procedures 10/14/2023 IUD Check/Follow-up (ICD-10 - Z30.431) Client is referred to [facility] for pelvic US to check for IUD and also since she has some pelvic pain. Unable to remove IUD today Spent 22 minutes doing the following: Chart Prep Obtaining/rev iewing history Performing medically necessary exam Counseling/Co ordination of Care Documenting the visit Educating the patient Ordering medication/te st/procedures 10/14/2023 Other Unable to remove IUD today Spent 22 minutes doing the following: Chart Prep Obtaining/rev iewing history Performing medically necessary exam Counseling/Co ordination of Care Documenting the visit Educating the patient Ordering medication/te st/procedures Plan Of Treatment Treatment Notes Assessment Notes IUD Check/Follow-up Client is referred t o [facility] for pelvic US to check for IUD and also since she has some pelvic pain. Next Appt Details Follow Up: 2 Weeks, Reason: Annual, pap, f/u for IUD Progress Notes * Lucrecia CASTROjazzEvelinOB:0 1980 (43 yo F)Acc No.[id number]:10/14/2023 Progress Note Patient:?MOLINA LUXLucrecia Provider:?Elenita Arenas NP :1980???Age:43 Y???Sex:Female D ate:10/14/2023 Address:[address] [place] [address] [place], [phone] Subjective: * Chief Complaints: * ???IUD follow up * HPI: ???Visit Narrative:? She would like IUD removed due to headaches.? She has had a hormonal IUD for 5 years and headaches are worse on this method.? She states she tried copper IUD and got headaches also. ?Reason for the visit:?iud out.?Current form of control:?iud?.?Presenting Symptoms:?clt states she gets a lot of headaches and wants the iud out because she wants a period?.?LMP:?10/13.?Last date of UPI:?09/13.?Other Notes for the Clinician:?clt is here for a iud removal. clt states the oud causes her to get a lot of headaches and would like to see her period also. clt has not had a pap smear in five years and hasn't had a mammogram yet..? * Medical History:? * Admissions Officer History:?Last mammogram date:?hasnt had a mammogram yet.?Last menstrual period:?10/13.?Last pap smear date:?2019-NIL per clt.?Menarche:?Age of menarche?11.? * OB History:?Total pregnancie s:?5.?Total living children:?5.? * Surgical History:?Denies Pas t Surgical History * Hospitalization/Major Diagno stic Procedure:?childbirth * Family History:?No Family Hi story documented..? * Social History:?Food Access:?Food Access?The Client's current access to food is?Secure Food Access.?Housing:?Housing?The client's current living situation is:?unstable housing clt wants referrals.?Reproductive Life Plan:?Reproductive Life Plan?Do you want to have children??Yes, I want to have children.?Sexual History:?Sexual History?Sexual History Reviewed:?Partners, Practices, Protection/Past STIs, Prevention of , ___,?Currently sexually active??Yes,?Sexually active with: Men,?Number of male partners?1,?Your sexual activities include:?vaginal intercourse,?Date of last unprotected intercourse:?09/14/2023,?Number of partners in past 3 months:?1,?Number of [...] Medications:?None * Allergies:?N.K.D.A.no[Allerg ies Verified] Objective: * Vitals:?BP:156/104mm Hg, Ht: 5'3 , Wt:187lbs, BMI:33.12Index, Ht-cm: 160.02, Wt- k.82. * Examination: ???General Examination: ?GENERAL APPEARANCE:?in no acute distress.?NEUROLOGIC:?alert and oriented.?Gynecological: ?EXTERNAL GENITALIA:?normal.?URETHRAL MEATUS:?normal.?URETHRA:?normal.?BLADDER:?normal.?VAGINA:?healthy pink mucosa without any lesions.?VAGINA VAULT:?normal.?CERVIX:?normal appearance, some bleeding, strings not visible.?ANUS/PERINEUM:?normal.? Assessment: * Assessment: 1.?IUD Check/Follow-up - Z30 .431 (Primary)?2.?Encounter for screening for infections with a predominantly sexual mode of transmission - Z11.3? Unable to remove IUD today Spent 22 minutes doing the following: Chart Prep Obtaining/reviewing history Performing medically necessary exam Counseling/Coordination of Care Documenting the visit Educating the patient Ordering medication/test/procedures. Plan: * Treatment: 2.?Encounter for screening f or infections with a predominantly sexual mode of transmission?LAB: APTIMA COMBO 2 CT/NG, Urine (Collection Date & Time - 10/14/2023 10:53 AM) ? Value Reference Range ?GONORRHEA, Amplified NEGATIVE NE GATIVE - * ?CHLAMYDIA, Amplified NEGATIVE NE GATIVE - * ELENITA ARENAS V 10/21/2023 01 :57:39 PM EDT >This lab was reviewed by ELENITA ARENAS on 10/21/2023 at 13:57 PM EDT * Procedure Codes:?76770 Chlam ydia - Amplified [id number] Gonorrhea - Amplified probe * Follow Up:?2 Weeks (Reason: Annual, pap, f/u for IUD) * Billing Information: * Visit Code:? 27739 New-Straightforward (IN USE). * Procedure Codes:? 56952 Chlamydia - Amplified probe. 10319 Gonorrhea - Amplified probe. * Sign off status: Completed true * Provider:?Elenita Arenas NP Date:? 024 Generated for Printi ng/Faxing/eTransmitting on:?06/24/2024 07:39 PM EST History and Physical Notes * HPI (History of Present Illness) Category Sub-Category Detail Notes Category Not es Visit Narrative Reason for the visit: iud out Current form of control: iud Presenting Symptoms: clt states she gets a lot of headaches and wants the iud out because she wants a period Other Notes for the Clinician: clt is he re for a iud removal. clt states the oud causes her to get a lot of headaches and would like to see her period also. clt has not had a pap smear in five years and hasn't had a mammogram yet. LMP: 10/13 Last date of UPI: 09/13 Examination Category Sub-Category Detail Notes Category Not es General Examination GENERAL APPEARANCE: in no acute di stress NEUROLOGIC: alert and oriented Gynecological CERVIX: normal appearance, some ble eding, strings not visible VAGINA: healthy pink mucosa without any lesions EXTERNAL GENITALIA: normal UTERUS: ADNEXA: CUL-DE-SAC: URETHRA: normal URETHRAL MEATUS: normal BLADDER: normal VAGINA VAULT: normal ANUS/PERINEUM: normal
--- OUTSIDE RECORDS SUMMARY | 2024-06-24 19:39 | XMS_ITS | Encounter Summary ---
Author Organization [facility] Address [address] [place] [address] 7 [place] [address] Care Team Providers Care Gas Pipe Layer Name Role Phone Jennifer Armenta NP Primary Care Provider [phone] Reason for Visit * Reason Onset Date Comments Chart Prep 06/13/2024 Encounter Details Date Type Department Care Team ([facility] st Contact Info) Description 06/13/2024 Telephone [facility] [address] [place], [place] [phone] Amanda King MA Chart Prep Social History Tobacco Use Types Packs/Day Years [...] encounter Miscellaneous Notes * Telephone Encounter - Amanda King MA - 06/13/2024 11:09 AM EST Chart Prep Labs: not applicable Images: not applicable Vaccines due: Covid Due and PCV20 Due Referrals: Physical Therapy complete Screenings: HIV screening and Hep C, Cervical cancer Overdue care gaps: None documented in this encounter Plan of Treatment Not on file documented as of this encounter Visit Diagnoses Not on filedocumented in this encounter Additional Health Concerns Assessment Noted Time PHQ-9 Depression Total Score: 0 11/17/19 24 2:14 PM EDT documented as of this encounter Care Teams Gas Pipe Layer Relationship Specialty Start Date End Date Jennifer Armenta NP [address] [place] [id number] PCP - General Family Medicine 11/17/23 documented as of this encounter
--- OUTSIDE RECORDS SUMMARY | 2024-06-24 19:40 | XMS_ITS | Clinical Summary ---
Author Organization [facility] Address [address] [facility] [address] [place] [address] Care Team Providers Care Labelling Machine Operator Name Role Phone Jennifer Armenta NP Primary Care Provider [phone] Allergies No known active allergies Medications Blood Pressure kitIndications:P rimary hypertension 1 kit 2 times daily. 1 kit 4 Active amLODIPine (Norvasc) 5 MG tabletIndication s:Primary hypertension,Hyp ertension, unspecified type Take 2 tablets (10 mg) by mouth Once per day. 90 tablet 1 4 Active Additional Information Patient not taking.Reported on 03/22/2024 lisinopril (Prinivil) 20 MG tabletIndication s:Primary hypertension,Hyp ertension, unspecified type Take 1 tablet (20 mg) by mouth Once per day. 30 tablet 11 4 01/11/20 25 Active albuterol 108 (90 Base) MCG/ACT inhalerIndicatio ns:Mild intermittent asthma with acute exacerbation Inhale 2 puffs every 6 (six) hours if needed for wheezing. 18 g 1 4 03/22/20 25 Active Active Problems Problem Noted Date Diagnosed Date Dietary counseling 04/01/2024 Assessment & Plan (04/01/2024 6:02 PM EDT): Encouraged minimizing processed foods and increasing whole foods particularly vegetables Exercise counseling 04/01/2024 Assessment & Plan (04/01/2024 6:02 PM EDT): Encouraged daily movement, working up to 30 minutes daily Mild intermittent asthma with acute exacerbation 03/22/2024 Assessment & Plan (04/01/2024 5:59 PM EDT): Will send albuterol rx If no improvement consider ics. Obesity (BMI 35.0-39.9 without comorbidity) 03/02 Chronic back pain 12/21/2023 Assessment & Plan (04/01/2024 6:00 PM EDT): Will refer to physical therapy Sinusitis 11/17/2023 Mild intermittent asthma without complication Assessment & Plan (11/17/2023 4:38 PM EDT): Requesting inhaler refills Low back pain at multiple sites 11/17/2023 Assessment & Plan (11/17/2023 4:40 PM EDT): Reviewed options of physiatry vs starting with physical therapy, pt opts to start with pt Primary hypertension 11/02/2023 Assessment & Plan (04/01/2024 6:00 PM EDT): BP goal: < 130/80 mmHg Continue lisinopril 20 mg and amlodipine 5 mg Encourage Lifestyle Interventions: -Routine aerobic exercise - initial goal of 30 min walk 3-5x/week. Increase as tolerated with goal 150 minutes weekly -low-sodium diet (goal: <2g/day) and heart healthy diet such as DASH to reduce BP and ASCVD risk. -Home BP monitoring 2-3 x/week (or more frequently as directed) -Seek immediate medical attention for chest pain, palpitations, SOB, syncope, or sudden changes in mental status. -Do not change or discontinue current prescriptions without first consulting health care provider Assessment & Plan (01/14/2024 6:08 PM EDT): Above goal today, pt reports stopping hydrochlorothiazide due to increased urinary frequency Continue amlodipine 5 mg and add lisinopril Rtc in 2-4 weeks Assessment & Plan (11/17/2023 4:40 PM EDT): Above goal today, start amlodipine, Continue hydrochlorothiazide. Medication Indications, side effects and duration of therapy reviewed, pt aware to call clinic for worsening symptoms or failure to resolve Follow up in 1 month Continue home bp measurements Labs as ordered below Assessment & Plan (11/02/2023 11:58 AM EDT): -clonidine 0.1 mg given in clinic -advised to not take amlodipine as prescribed in the ED -start hydrochlorothiazide 25 mg today -BMP ordered to evaluate renal function following med initiation -advised low sodium intake -ED precautions reviewed -follow-up in walk-in center this Thursday. Appointment provided Encounters Date Type Department Care Team Description 06/17/[address] [address] Jennifer Armenta NP No Show 06/13/[address] [address] Amanda King MA Chart Prep 04/13/[address] [address] Jennifer Armenta NP Med Refill (Patient walked in requesting meds for back pain patient stated pcp had prescribed motrin and patient needs meds. ) 04/12/[address] [address] Lesly Paiz MA ambrocio recall 04/12/2024 Travel from Last 3 Months Immunizations Name Administration Dates Next Due Influenza injectable quadrivalent preservative f ree 04/12/2019,02/22/2019 Influenza, seasonal, injectable, preservative fr ee 03/22/2024 Tdap 11/04/2017 Family History Medical History Relation Name Comments Hypertension Father Hypertension Father's Brother Hypertension Father's Sister Heart disease Maternal Grandfather Hypertension Mother Hypertension Mother's Brother Hypertension Mother's Sister Heart disease Paternal Grandmother Relation Name Status Comments Father Father's Brother Father's Sister Maternal Grandfather Mother Mother's Brother Mother's Sister Paternal Grandmother Social History Tobacco Use Types Packs/Day Years Used Date Smoking Tobacco: Never Passive Smoke Exposure: Never Smokeless Tobacco: Never Tobacco Cessation:Counseling Given: Not Answered Alcohol Use Standard Drinks/Week Comments Never 0 [...] Orientation Straight 11/02/2023 11 :08 AM EDT Last Filed Vital Signs Vital Sign Reading Time Taken Comments Blood Pressure 120/80 03/22/2024 11:04 AM EDT Pulse 74 03/22/2024 11:04 AM EDT Temperature 36.8 ??C (98.2 ??F) 01/19/2024 3:01 PM ED T Respiratory Rate 16 03/22/2024 11:0 4 AM EDT Oxygen Saturation 98% 03/22/2024 11: 04 AM EDT Inhaled Oxygen Concentration - - Weight 90.2 kg (198 lb 12.8 oz) 024 11:04 AM EDT Height 160 cm (5' 3 ) 03/22/2024 11:04 AM EDT Body Mass Index 35.22 03/22/2024 11:04 AM EDT Plan of Treatment Health Maintenance Due Date Last Done Comments HIV Screening 1980 Pneumococcal Vaccine: Pediatrics (0 to 5 Years) and At-Risk Patients (6 to 64 Years) (1 of 2 - PCV) 1988 Hepatitis C Screening 2000 Hepatitis B Vaccines (1 of 3 - 19+ 3-dose series) 2001 Pap Smear 08/30/2003 Cervical Cancer Screening 2012 HPV/Cotest 2012 Mammogram 2022 COVID-19 Vaccine ( - 2023-2 5 season) 2024 Family Planning (PISQ) 11/01/2024 11/02/2023 Alcohol/Substance Use Screening 11/16/2024 11/17/2023 Depression Screening 11/16/2024 11/17/2023, 11/17/2023 SDOH Screening 11/16/2024 11/17/2023 Tobacco Screening 03/22/2025 03/22/2024 DTaP/Tdap/Td Vaccines (2 - T d or Tdap) 11/05/2027 11/04/2017 Lipid Panel 12/20/2028 12/21/2023 Zoster Vaccines (1 of 2) 2032 RSV Patients and Patients Aged 60 years or older (1 - 1-dose 75+ series) 2057 Influenza Vaccine Completed 03/22/2024, 04/12/2019, 02/22/2019 HIB Vaccines Aged Out No longer eligi ble based on patient's age to complete this topic HPV Vaccines Aged Out No longer eligi ble based on patient's age to complete this topic Hepatitis A Vaccines Aged Out No long er eligible based on patient's age to complete this topic IPV Vaccines Aged Out No longer eligi ble based on patient's age to complete this topic Meningococcal Vaccine Aged Out No alex little eligible based on patient's age to complete this topic RSV under 20 months Aged Out No longe r eligible based on patient's age to complete this topic Rotavirus Vaccines Aged Out No longer eligible based on patient's age to complete this topic Procedures Procedure Name Priority Date/Time Associated Diagnosis Comments LIPID PANEL, STANDARD Routine 12/21/2023 11:49 AM EDT Primary hypertension from Last 3 Months or Most Recently Relevant to Health Maintenance Results * Lipid Panel, Standard (12/21/2023 11:49 AM EDT) Triglycerides 97 <150 mg/dL [facility] Comment:Desirable Triglyceri de: less than 150 mg/dLBorderline High Triglyceride 150-199 mg/dLHigh Triglyceride: 200-499 mg/dLVery High Triglyceride: greater than or equal to 5OO mg/dL Cholesterol 163 <200 mg/dL [facility] Comment:Desirable Cholestero l: less than 200 mg/dLBorderline High Cholesterol: 200-239 mg/dLHigh Cholesterol: greater than 239 mg/dL LDL Cholesterol Calculated 94 <100 mg/dL [facility] Comment:Desirable LDL: less than 100 mg/dLNear Optimal/Above Optimal LDL: 110- 129 mg/dLBorderline High LDL: 130-159 mg/dLHigh LDL: 160-189 mg/dLVery High LDL: greater than or equal to 190 mg/dL HDL Cholesterol 50 >40 mg/dL [facility] Comment:Desirable HDL: great er than 40 mg/dL Note: This HDL assay may give artificially low results in patients with liver disease. Blood Venous blood specimen / Unknown 12/21/2023 11:49 AM EDT 12/21/2023 1:13 PM EDT us Jennifer Armenta NP LAB BLOOD ORDERABLES Final Resul t [facility] [address] [place] [phone] from Last 3 Months or Most Recently Relevant to Health Maintenance Insurance [facility] [place] [address] Care Teams Labelling Machine Operator Relationship Specialty Start Date End Date Jennifer Armenta NP [address] [place] [id number] PCP - General Family Medicine 11/17/23
--- OUTSIDE RECORDS SUMMARY | 2024-06-24 19:40 | XMS_ITS | Patient Health Record ---
Author Organization [facility] Address [address] [place] [id number] Care Team Providers Care Tobacco Checkout Clerk Name Role Phone ELENITA ARENAS Unavailable [phone] Allergies No Known Allergies Results Component Value Reference Range Notes APTIMA COMBO 2 CT/NG, Urine Reviewed date:10/21/2023 01:57:41 PM Interpretation:Negative Performing Lab:[facility], [facility], [place], [address] Jersey Oneal DO Notes/Report: GONORRHEA, AMPLIFIED NEGATIVE NEGATIVE CHLAMYDIA, AMPLIFIED NEGATIVE NEGATIVE DNA Test Results SEX: F : 1980 AGE: 43 [id number] CLINIC ID: [id number] SS: PHYSICIAN: ELENITA ARENAS VISUAL DEVELOPER COLLECTED BY: [id number] ____ Specimen Source: Urine Specimen Type: Urine, Marquez PCR Medium Neisseria gonorrhoeae: NEGATIVE Normal Value: Negative Chlamydia trachomatis: NEGATIVE Normal Value: Negative THINPREP PAP TEST, Cervix Reviewed date:11/17/2023 10:06:00 AM Interpretation:Normal Performing Lab:[facility], [facility], [employer] [place], [address] Jersey Oneal DO Notes/Report: THINPREP PAP TEST NEGATIVE NEGATIVE -- THIN PREP PAP TEST -- SEX: F : 1980 AGE: 43 [id number] CLINIC ID: [id number] SS: PHYSICIAN: ELENITA ARENAS VISUAL DEVELOPER COLLECTED BY: ____ Negative for Intraepithelial Lesion or Malignancy ____ Additional Findings: Endocervical Material Present Specimen Adequacy: Satisfactory for Evaluation Clinical Note: HPV TodqkxoJ60.419 Encounter for gynecological examination (general) (routine) without abnormal kgaklsdlF89.51 Encounter for screening for human papillomavirus (HPV), LMP 10/28/23 Specimen Source: Cervix Visit Type: Routine Performed by: SCOT Rock (ASCP) Reviewed by: SCOT Rehman (ASCP) (Electronic Signature 11/10/2023 07:54) HPV HIGH RISK, Cervix Reviewed date:11/17/2023 09:50:02 AM Interpretation:Negative Performing Lab:[facility], [facility] [place], [address] Jersey Oneal DO Notes/Report: HPV HIGH RISK NEGATIVE NEGATIVE HPV High Risk DNA Probe Assay SEX: F : 1980 AGE: 43 [id number] CLINIC ID: [id number] SS: PHYSICIAN: ELENITA ARENAS VISUAL DEVELOPER COLLECTED BY: ____ Specimen Source: Cervix Specimen Type: ThinPrep Pap Correlating Pap: [id number] Additional High Risk Subtypes* NEGATIVE * Includes 31,33,35,39,45,51,52,56,58,59,66, 68 Subtype 16 NEGATIVE Subtype 18 NEGATIVE Reason For Referral No Information Social History Sex Assigned At : Social History Observation Description Sex Assigned At Female Vital Signs Blood pressure diastolic 84 mm Hg 10/28/2023 Height 5'3 in 10/28/2023 Blood pressure systolic 150 mm Hg 10/28/2023 Weight 187 lbs 10/28/2023 BMI 33.12 kg/m2 10/28/2023 Encounters Encounter Location Date Provider Diagnosis [address] [phone] 10/14/2023 ELENITA ARENAS Encounter for screen ing for infections with a predominantly sexual mode of transmission Z11.3 and IUD Check/Follow-up Z30.[address] [id number] 10/28/2023 ELENITA ARENAS Encounter for gynecological examination (general) (routine) without abnormal findings Z01.419 ; Encounter for screening for human papillomavirus (HPV) Z11.51 and Routine Pap Screening Z12.[address] [id number] 10/23/2023 ELENITA ARENAS Assessments Encounter Date Diagnosis [...] (ICD-10 - Z30.431) Client is referred to [facility] for pelvic US to check for IUD and also since she has some pelvic pain. Unable to remove IUD today Spent 22 minutes doing the following: Chart Prep Obtaining/rev iewing history Performing medically necessary exam Counseling/Co ordination of Care Documenting the visit Educating the patient Ordering medication/te st/procedures 10/28/2023 Encounter for gynecological examination (general) (routine) without abnormal findings (ICD-10 - Z01.419) 10/28/2023 Encounter for screening for human papillomavirus (HPV) (ICD-10 - Z11.51) 10/28/2023 Routine Pap Screening (ICD-10 - Z12.4) 10/14/2023 Other Unable to remove IUD today Spent 22 minutes doing the following: Chart Prep Obtaining/rev iewing history Performing medically necessary exam Counseling/Co ordination of Care Documenting the visit Educating the patient Ordering medication/te st/procedures 10/28/2023 Other She is referred to [facility] for IUD removal. Mammogram referral done. Encouraged to seek care for BP, list of PCP providers given Plan Of Treatment No Information Insurance Providers Payer Name Payer Address Payer Phone Subscriber Number Group Number Insured Name Patient Relationship to Insured Coverage Start Date Coverage End Date [place] [address] [place] [address] [id number] Yunior Jones Self - patient is the insured Medical (General) History Medical History History ICD Code asthma chronic sinus infection Hospitalization History Reason Date(Month/Year) childbirth
[2024-06-24 19:47] LABS: MANUAL DIFF FLAG NO
[2024-06-24 19:55] LABS: Appearance Urine Clear; Color Urine Yellow; Glucose Urine UA Negative (Negative); Leukocyte Esterase Urine Moderate (2+) (Negative); Nitrite Urine Negative (Negative); Prothrombin Time 11.9 SEC (10.9-12.4); UMIC TRIGGER UACC YES; Urine Blood Large (3+) (Negative); Urine Ketones Negative (Negative); Urine Protein Negative (Neg-Trace)
[2024-06-24 19:58] LABS: Basophils Absolute Auto 0.1 X10*3/uL (0.0-0.2); Basophils Percent Auto 0.5 % (0-2); Eosinophils Absolute Auto 0.1 X10*3/uL (0.0-0.4); Eosinophils Percent Auto 1.3 % (0-4); Hemoglobin 14.4 g/dl (12.0-16.0); Imm Gran Abs Auto 0.05 X10*3/uL (0.00-0.03); Imm Gran Pct Auto 0.5 % (0.0-0.4); Lymphocytes Absolute Auto 1.7 X10*3/uL (1.2-4.9); Lymphocytes Percent Auto 15.3 % (20-40); Mean Corpuscular HGB Conc 33.5 g/dl (31.0-35.0); Mean Corpuscular Volume 80.5 fL (80.0-98.0); Mean Platelet Volume 10.7 fL (9.4-12.3); Monocytes Absolute Auto 0.4 X10*3/uL (0.1-1.2); Monocytes Percent Auto 3.6 % (2-11); Neutrophils Absolute Auto 8.8 x10*3/uL (2.0-8.3); Neutrophils Percent Auto 78.8 % (45-73); Platelet Count 277 X10*3/uL (160-400); Red Blood Count 5.34 X10*6/uL (4.20-5.50); Red Cell Distribution Width 13.2 % (11.0-16.0); White Blood Count 11.1 X10*3/uL (4.8-10.8)
[2024-06-24 20:05] LABS: Alanine Aminotransferase 13 U/L (0-31); Albumin Level 4.2 g/dL (3.5-5.0); Alkaline Phosphatase 58 U/L (39-117); Anion Gap 12 (12-20); Aspartate Amino Transferase 15 U/L (5-31); Bilirubin Total 0.7 mg/dL (0.0-1.0); Blood Urea Nitrogen 9 mg/dL (9-16); Calcium 8.7 mg/dL (8.4-10.2); Carbon Dioxide 24 mmol/L (22-29); Chloride 109 mmol/L (96-108); Creatinine Clr Calc Pharmacy 150.7; Estimated Glomerular Filt Rate > 60; Glucose Random 97 mg/dL (60-115); Lipase 26 U/L (8-78); Potassium 4.7 mmol/L (3.3-5.1); Sodium 140 mmol/L (135-145); Total Protein 7.7 g/dL (6.5-8.0)
[2024-06-24 20:23] LABS: Bacteria Urine 1+ (None Seen); Hyaline Casts Urine 0-2 /LPF (0-2); RBC Urine 0-2 /HPF (0-2); UACC Culture Trigger YES; WBC Urine 21-50 /HPF (0-5)
[2024-06-25 00:27] VITALS: BP 113/80; PULSE 87; RESP 18; TEMP 36.9; O2SAT 96
[2024-06-25 01:51] LABS: UPreg QC Valid YES; Urine Pregnancy NEGATIVE (NEGATIVE)
[2024-06-25] MEDS: cefuroxime axetiL 250 MG TABLET PO (03:36)
[2024-06-25 03:37] VITALS: BP 138/88; PULSE 98; RESP 16; TEMP 36.6; O2SAT 98
== END 2024-06-25 03:45 | disposition home or self-care (01) ==
PROVIDERS: Registered Nurse Emergency; Emergency Provider Emergency Medicine; PCP Nurse Practitioner Family
DX: N39.0 Urinary tract infection, site not specified (principal); R10.2 Pelvic and perineal pain; Z79.899 Other long term (current) drug therapy
CPT/HCPCS: 36415; 74176; 80053; 81001; 81025; 83690; 85025; 85610; 87086; 99284

== ENCOUNTER → 2024-06-25 01:16 | Outpatient (BNV) | payer MEDICAID, SELFPAY | PROVIDERS: Emergency Provider Emergency Medicine; PCP Nurse Practitioner Family; Visit Provider General Practice | DX: K44.9 Diaphragmatic hernia without obstruction or gangrene (principal); Z97.5 Presence of (intrauterine) contraceptive device | CPT/HCPCS: 74176 ==